=== PATIENT | male | born 1955 | race Caucasian/White ===

== ENCOUNTER 2020-06-14 20:15 | Emergency (ER) | payer BC ==
[2020-06-14 20:18] VITALS: BP 130/85; PULSE 64; TEMP 98.3; BMI 24.3
--- NOTE | 2020-06-14 21:22 | PDOC ---
Documentation entered by Noe Bruce SCRIBE, acting as scribe for Amy Medina MD. Amy Medina MD: This documentation has been prepared by the Janis whelan Angel, SCRIBE, under my direction and personally reviewed by me in its entirety. I confirm that the documentation accurately reflects all work, treatment, procedures, and medical decision making performed by me. History of Present Illness - General Chief Complaint: Pain, Acute Stated Complaint: RIGHT LEG PAIN Time Seen by Provider: 06/14/20 20:20 History Source: Patient Exam Limitations: No Limitations - History of Present Illness Initial Comments: 06/14/20 20:26 The patient is a 65 year old male who presents to the ED with worsening varicosities on his right leg. The patient states he has a history of bilateral lower extremity varicosities but has noticed his right leg becoming more concerning as he says his leg feels as hard as a rock below the knee compared to the left. The patient states he has been using compression stockings long before these symptoms began and notes no improvement. The patient states only when he gets up to walk he feels a sharp pain for his first few steps before the pain settles down. The patient has no other complaints here in the ED. Assessment and plan: This is a 65-year-old male with a long history of varic osities of his bilateral lower extremities. The varicosities on his right have gotten worse recently with some superficial thrombosis of some of the superficial veins. There is no evidence of deep thrombosis. Patient was reassured told to use some compression stockings which he says he does use hot soaks and follow-up with a vascular surgeon. 06/14/20 20:33 Past History - Medical History Allergies/Adverse Reactions: Allergies Allergy/AdvReac Type Severity Reaction Status Date / Time No Known Allergies Allergy Verified 06/14/20 20:15 Home Medications: Ambulatory Orders Fexofenadine HCl [Daina] 30 mg PO DAILY 01/16/13 COPD: No Other medical history: DENIES - Psycho-Social/Smoking History Smoking Status: No Smoking History: Never smoked Have you smoked in the past 12 months: No Number of Cigarettes Smoked Daily: 0 - Substance Abuse Hx (Audit-C & DAST Scrn) How often the patient has a drink containing alcohol: Never Score: In Men: 4 or > Positive; In Women: 3 or > Positive: 0 Screen Result (Pos requires Nsg. Audit-10AR): Negative In the last yr the pt used illegal drug/Rx for NonMed reason: No Score: Yes response is considered Positive: 0 Screen Result (Positive result requires Nsg. DAST-10): Negative Review of Systems - Review of Systems Able to Perform ROS?: Yes Comments:: 06/14/20 20:39 General: No fevers or chills, no weakness, no weight loss HEENT: No change in vision. No sore throat. No ear pain CardioVascular: No chest pain or shortness of breath Respiratory:No cough, or wheezing. Gastrointestinal: no nausea, vomiting, diarrhea or constipation, No rectal bleeding Genitourinary: No dysuria, hematuria, or frequency Musculoskeletal: +RLE pain Neurologic: No headache, vertigo, dizziness or loss of consciousness Psychiatric: nor depression Skin: No rashes or easy bruising Endocrine: no increased thirst or abnormal weight change Allergic: no skin or latex allergy All other systems reviewed and normal *Physical Exam - Vital Signs Last Vital Signs Temp Pulse Resp BP Pulse Ox 98.3 F 64 16 130/85 100 06/14/20 20:15 06/14/20 20:15 06/14/20 20:15 06/14/20 20:15 06/14/20 20:15 - Physical Exam 06/14/20 20:32 GENERAL: The patient is awake, alert, and fully oriented, in no acute distress. HEAD: Normal with no signs of trauma. EYES: Pupils equal, round and reactive to light, extraocular movements intact, sclera anicteric, conjunctiva clear. EXTREMITIES: +Bilaterally lower extremities exhibit multiple varicosities below the knees. Right lower extremity exhibits several varicosities with palpable superficial thrombus. No erythema, minimal tenderness associated with superficial thrombus. NEUROLOGICAL: Normal speech, normal gait. PSYCH: Normal mood, normal affect. SKIN: Warm, Dry, normal turgor, no rashes or lesions noted. Discharge - Discharge Information Problems reviewed: Yes Clinical Impression/Diagnosis: Superficial thrombophlebitis of right leg Condition: Stable Disposition: HOME - Admission No - Follow up/Referral Referrals: Placido Gonzalez [Primary Care Provider] - - Patient Discharge Instructions Patient Printed Discharge Instructions: DI for Superficial Thrombophlebitis Additional Instructions: Follow-up with a vascular surgeon. Tylenol or Motrin as needed for pain. Wear your compression stockings. Return to the emergency department immediately with ANY new, persistent or worsening symptoms. Continue any medications as previously prescribed by your physician. You should follow up with your primary doctor as soon as possible regarding today's emergency department visit. . Please make sure your doctor reviews the results of your emergency evaluation. Thank you for coming to the Emergency Department today for your care. It was a pleasure to see you today. Please note that your evaluation is INCOMPLETE until you follow-up with your doctor. - Post Discharge Activity
== END 2020-06-14 20:31 | disposition home or self-care (01) ==
LOC: FER 20:15
DX: I80.01 Phlebitis and thrombophlebitis of superficial vessels of right lower extremity (principal)
CPT/HCPCS: 99284-25

== ENCOUNTER 2021-12-15 19:27 | Emergency (ER) | payer BC ==
[2021-12-15] MEDS ORDERED: LACTATED RINGERS SOLUTION 1000 ML INFUS.BAG IV ONE (19:34)
[2021-12-15 19:38] VITALS: BP 161/89; PULSE 85; TEMP 97.5; BMI 24.3
[2021-12-15] MEDS ORDERED: MECLIZINE HCL 25 MG TABLET (FP) PO ONE (19:49)
[2021-12-15] MEDS ORDERED: MECLIZINE HCL 25 MG TABLET (FP) ONE (19:54)
[2021-12-15 20:17] LABS: BILIRUBIN,TOTAL 0.8 mg/dl (0.2-1); CALCIUM 9.6 mg/dl (8.5-10); CREATININE 1.2 mg/dl (0.55-1.3); TOT PROT 6.7 g/dl (6.4-8.2)
[2021-12-15 20:21] LABS: BASO % 0.5 % (0-2.0); HEMATOCRIT 46.1 % (35.4-49); HEMOGLOBIN 15.5 GM/dL (11.7-16.9); LYMPH % 20.9 % (8-40); MCH 31.3 pg (25.7-33.7); MCHC 33.6 g/dl (32.0-35.9); MEAN PLT VOLUME 8.8 fl (7.5-11.1); MONO % 9.1 % (3.8-10.2); NEUT % 61.5 % (42.8-82.8); PLATELET COUNT 197 10^3/uL (134-434); RBC 4.96 M/mm3 (4.00-5.60); RDW 13.6 % (11.9-15.9); WHITE BLOOD COUNT 5.4 K/mm3 (4.0-10.0)
[2021-12-15 21:24] LABS: EPITHELIAL CELLS RARE /hpf
== END 2021-12-15 21:06 | disposition home or self-care (01) ==
LOC: FER 19:27
DX: H81.10 Benign paroxysmal vertigo, unspecified ear (principal)
CPT/HCPCS: 36415; 80053; 81003; 81015; 82550; 84484; 85025; 93005; 93010; 99283-25